=== PATIENT | male | born 1985 | race Caucasian/White ===

== ENCOUNTER → 2022-04-07 | Outpatient (CLI) | payer SELFPAY ==
--- NOTE | 2022-04-07 | VAS_PTH ---
PATIENT: EMMY PERES LOC: [facility] U#:[id number] AGE/SX: 36/M ROOM: RE04/07/[address]: Dr. Alfa Garner MD : 1985 BED: DIS: 04/07/2022 SPEC #: [id number] RECD: 04/07/22 14:35 STATUS: MESHA SANJANA #: [id number] JEREMY: 04/07/22 00:[address]: Alfa Garner DEPT: SURGICAL PATHOLOGY RECD BY: Wyatt Gaspar Tissues: A - Vas deferens, NOS B - Vas deferens, NOS Procedures: Surgery Specimen Level II HEADER OPERATION: Bilateral partial vasectomy PRE-OP DIAGNOSIS: Sterilization TISSUE SUBMITTED: A ? Right vas deferens, B ? Left vas deferens MICROSCOPIC DIAGNOSIS A. Right vas deferens, partial vasectomy: Completely transected segment of vas deferens, no pathologic diagnosis. B. Left vas deferens, partial vasectomy: Completely transected segment of vas deferens, no pathologic diagnosis. CEDRIC:vincent 04/09/2022 MICROSCOPIC DESCRIPTION Slides are reviewed. GROSS DESCRIPTION A - Received is one container designated right vas deferens. The specimen consists of a tubular segment of acevedo soft tissue measuring 0.7 cm in length and 0.3 cm in diameter. The specimen is sectioned and submitted entirely in one cassette. B - Received is one container designated left vas deferens. The specimen consists of a tubular segment of acevedo soft tissue measuring 0.6 cm in length and 0.3 cm in diameter. The specimen is sectioned and submitted entirely in one cassette. / CEDRIC:vincent 04/08/2022 TC:4 CPT: 07055 x2
== END | disposition home or self-care (01) ==
PROVIDERS: Visit Provider Surgery
DX: Z30.2 Encounter for sterilization (principal)
CPT/HCPCS: 88302

== ENCOUNTER → 2022-05-30 | Outpatient (CLI) | payer SELFPAY ==
[2022-05-30 18:24] LABS: Semen Analysis Post Vas ABSENT
[2022-06-02 11:52] LABS: Pathologist Review Reviewed
== END | disposition home or self-care (01) ==
PROVIDERS: Referring Provider Surgery; Visit Provider Surgery
DX: Z30.2 Encounter for sterilization (principal)
CPT/HCPCS: 89321

== ENCOUNTER → 2022-06-02 | Outpatient (CLI) | payer SELFPAY ==
[2022-06-02 20:35] LABS: Semen Analysis Post Vas ABSENT
[2022-06-04 13:09] LABS: Pathologist Review Reviewed
== END | disposition home or self-care (01) ==
LOC: LABSPEC 16:19
PROVIDERS: Referring Provider Surgery; Visit Provider Surgery
DX: Z30.2 Encounter for sterilization (principal)
CPT/HCPCS: 89321